=== PATIENT | male | born 1975 | race African-American/Black ===

== ENCOUNTER 2023-02-20 12:29 | Inpatient (IN) | payer OTHER ==
[2023-02-20] MEDS ORDERED: Ondansetron ODT 4 MG TAB PO PRN (14:24)
[2023-02-20] MEDS ORDERED: Acetaminophen 325 MG TAB PO PRN (14:24)
[2023-02-20] MEDS ORDERED: Senokot S 8.6-50 MG TAB PO PRN (14:24)
[2023-02-20] MEDS ORDERED: Sodium Chloride 0.9% 1,000 ML IV SCH (14:30)
[2023-02-20] MEDS ORDERED: Dextrose 50% Abboject 50 ML SYRINGE SLOW IVP PRN ×2 (15:04→15:06)
[2023-02-20] MEDS ORDERED: Dextrose 5% in Water 1,000 ML IV PRN ×2 (15:04→15:06)
[2023-02-20] MEDS ORDERED: HumaLOG 300 UNITS/3 ML VIAL SC PRN (15:06)
[2023-02-20] MEDS ORDERED: Aspirin 325 mg Enteric Coated Tablet PO SCH (15:10)
[2023-02-20 15:32] VITALS: BMI 36.1
[2023-02-20] MEDS: Heparin 5,000 UNITS/ML VIAL SC SCH ×2 (16:10→20:12)
[2023-02-20] MEDS: Nicotine 14 MG PATCH TD SCH (16:11)
[2023-02-20] MEDS: Sodium Chloride 0.9% 1,000 ML IV SCH (16:12)
[2023-02-20 16:36] LABS: CKMB 6.5 ng/mL (0-6.6)
[2023-02-20] MEDS: Famotidine 20 MG TAB PO SCH (20:11)
[2023-02-20] MEDS: Atorvastatin Calcium 40 MG TAB PO SCH (20:11)
[2023-02-20] MEDS: hydrALAZINE 25 MG TAB PO SCH (20:12)
[2023-02-20 22:14] LABS: CKMB 6.3 ng/mL (0-6.6)
[2023-02-21 05:05] LABS: #Eosinphils 0.1 thou/uL (0.0-0.7); #Monocytes 0.5 thou/uL (0.11-0.59); #Neutrophils 3.3 thou/uL (1.40-6.50); %Basophils 0.1 % (0.0-1.0); %Eosinophils 0.7 % (0.0-10.0); %Lymphocytes 44.9 % (21.0-51.0); %Monocytes 6.6 % (0.0-10.0); %Neutrophils 47.6 % (42.0-75.0); Hemoglobin 11.6 g/dL (14.0-18.0); Mean Corpuscular HGB CONC 32.3 g/dL (32.0-36.0); Mean Corpuscular Hemoglobin 30.5 pg (27.0-31.0); Mean Corpuscular Volume 94.5 fl (78.0-98.0); Mean Platelet Volume 10.5 fL (7.4-10.4); Platelet Count 135 10x3/uL (130-400); RBC Distribution Width 14.1 % (11.5-14.5)
[2023-02-21 05:30] LABS: ALT (SGPT) 85 U/L (8-55); AST (SGOT) 37 U/L (5-34); Albumin 3.5 g/dL (3.5-5.0); Alkaline Phosphatase 56 U/L (40-110); Anion Gap 8 mmol/L (10-20); BUN (Urea Nitrogen) 19 mg/dL (8.9-20.6); Bilirubin, Total 0.2 mg/dL (0.2-1.2); Calc. Creatinine Clearance 105 mL/min (70-130); Calcium 8.5 mg/dL (7.8-10.44); Carbon Dioxide 23 mmol/L (22-29); Cardiac Risk 4.4 (Less than 4.5); Chloride 110 mmol/L (98-107); Cholesterol 131 mg/dl (< 200 Desired); Estimated GFR 58; Globulin 2.9 g/dL (2.4-3.5); Glucose 94 mg/dL (70-105); HDL Cholesterol 30 mg/dL (>60 Neg Risk); LDL Cholesterol, Calculated 86 mg/dL; Potassium 4.4 mmol/L (3.5-5.1); Protein, Total 6.4 g/dL (6.0-8.3); Sodium 137 mmol/L (136-145); Triglycerides 77 mg/dL (Less than 150)
[2023-02-21] MEDS: Sodium Chloride 0.9% 1,000 ML IV SCH ×2 (06:20→14:00)
[2023-02-21] MEDS: Heparin 5,000 UNITS/ML VIAL SC SCH ×3 (08:54→21:13)
[2023-02-21] MEDS: Aspirin 325 mg Enteric Coated Tablet PO SCH (08:55)
[2023-02-21] MEDS: hydrALAZINE 25 MG TAB PO SCH ×3 (08:55→21:15)
[2023-02-21] MEDS: RisperDAL M 1 MG TAB SL SCH (08:57)
[2023-02-21] MEDS: Famotidine 20 MG TAB PO SCH ×2 (08:57→21:12)
[2023-02-21] MEDS ORDERED: Iopamidol 370 76% 100 ML VIAL ONE (10:02)
[2023-02-21] MEDS ORDERED: Communication Order-Pharmacy FS SCH (12:00)
[2023-02-21] MEDS ORDERED: Lidocaine 1% (PF) 30 ML VIAL ONE (12:05)
[2023-02-21] MEDS ORDERED: fentaNYL 50 mcg/mL 1 mL Vial ONE (13:18)
[2023-02-21] MEDS ORDERED: Midazolam HCl 2 mg/2 ml Vial ONE (13:19)
[2023-02-21] MEDS ORDERED: Nitroglycerin 0.4 MG TAB (25 Tab Bottle) SL PRN (15:46)
[2023-02-21] MEDS ORDERED: Sodium Chloride 0.9% 200 ML IV PRN (15:46)
[2023-02-21] MEDS ORDERED: Acetaminophen/Codeine 30-300mg Tablet PO PRN ×2 (15:46)
[2023-02-21] MEDS: Nicotine 14 MG PATCH TD SCH (16:27)
[2023-02-21] MEDS: Atorvastatin Calcium 40 MG TAB PO SCH (21:12)
[2023-02-22 05:22] LABS: #Monocytes 0.4 thou/uL (0.11-0.59); #Neutrophils 3.5 thou/uL (1.40-6.50); %Basophils 0.3 % (0.0-1.0); %Eosinophils 0.7 % (0.0-10.0); %Lymphocytes 34.1 % (21.0-51.0); %Monocytes 6.2 % (0.0-10.0); %Neutrophils 58.5 % (42.0-75.0); Hemoglobin 11.9 g/dL (14.0-18.0); Mean Corpuscular HGB CONC 32.7 g/dL (32.0-36.0); Mean Corpuscular Hemoglobin 30.7 pg (27.0-31.0); Mean Corpuscular Volume 94.1 fl (78.0-98.0); Mean Platelet Volume 10.2 fL (7.4-10.4); Platelet Count 129 10x3/uL (130-400); Red Blood Cell (RBC) Count 3.87 mill/uL (4.70-6.10)
[2023-02-22 05:46] LABS: Anion Gap 12 mmol/L (10-20); BUN (Urea Nitrogen) 16 mg/dL (8.9-20.6); Calc. Creatinine Clearance 121 mL/min (70-130); Calcium 8.6 mg/dL (7.8-10.44); Carbon Dioxide 21 mmol/L (22-29); Chloride 109 mmol/L (98-107); Estimated GFR 69; Glucose 87 mg/dL (70-105); Potassium 4.6 mmol/L (3.5-5.1); Sodium 137 mmol/L (136-145)
[2023-02-22] MEDS: hydrALAZINE 25 MG TAB PO SCH ×2 (09:08→21:05)
[2023-02-22] MEDS: Famotidine 20 MG TAB PO SCH ×2 (09:09→21:06)
[2023-02-22] MEDS: Aspirin 325 mg Enteric Coated Tablet PO SCH (09:09)
[2023-02-22] MEDS: Heparin 5,000 UNITS/ML VIAL SC SCH (09:09)
[2023-02-22] MEDS: RisperDAL M 1 MG TAB SL SCH (09:09)
[2023-02-22] MEDS ORDERED: Iopamidol 370 76% 100 ML VIAL ONE (10:23)
[2023-02-22] MEDS ORDERED: Apixaban 5 MG TAB PO SCH (10:30)
[2023-02-22] MEDS: Sodium Chloride 0.9% 1,000 ML IV SCH (11:06)
[2023-02-22] MEDS: Nicotine 14 MG PATCH TD SCH (15:48)
[2023-02-22] MEDS: Apixaban 5 MG TAB PO SCH (21:07)
[2023-02-22] MEDS: Atorvastatin Calcium 10 MG TAB PO SCH (21:07)
[2023-02-23 04:54] LABS: #Eosinphils 0.1 thou/uL (0.0-0.7); #Monocytes 0.4 thou/uL (0.11-0.59); #Neutrophils 3.1 thou/uL (1.40-6.50); %Basophils 0.2 % (0.0-1.0); %Lymphocytes 40.4 % (21.0-51.0); %Monocytes 6.3 % (0.0-10.0); %Neutrophils 51.9 % (42.0-75.0); Hemoglobin 11.9 g/dL (14.0-18.0); Mean Corpuscular HGB CONC 33.3 g/dL (32.0-36.0); Mean Corpuscular Hemoglobin 30.7 pg (27.0-31.0); Mean Corpuscular Volume 92.2 fl (78.0-98.0); Mean Platelet Volume 10.6 fL (7.4-10.4); Platelet Count 138 10x3/uL (130-400); RBC Distribution Width 13.8 % (11.5-14.5); Red Blood Cell (RBC) Count 3.87 mill/uL (4.70-6.10); White Blood Cell (WBC) Count 5.9 10x3/uL (4.8-10.8)
[2023-02-23 05:19] LABS: Anion Gap 13 mmol/L (10-20); BUN (Urea Nitrogen) 14 mg/dL (8.9-20.6); Calc. Creatinine Clearance 122 mL/min (70-130); Calcium 8.8 mg/dL (7.8-10.44); Carbon Dioxide 22 mmol/L (22-29); Chloride 109 mmol/L (98-107); Estimated GFR 69; Glucose 84 mg/dL (70-105); Potassium 4.6 mmol/L (3.5-5.1); Sodium 139 mmol/L (136-145)
[2023-02-23] MEDS: Famotidine 20 MG TAB PO SCH ×2 (08:35→20:19)
[2023-02-23] MEDS: Apixaban 5 MG TAB PO SCH ×2 (08:35→20:18)
[2023-02-23] MEDS: hydrALAZINE 25 MG TAB PO SCH ×2 (08:36→20:19)
[2023-02-23] MEDS: RisperDAL M 1 MG TAB SL SCH (08:40)
[2023-02-23] MEDS: Nicotine 14 MG PATCH TD SCH (17:11)
[2023-02-23] MEDS: Atorvastatin Calcium 10 MG TAB PO SCH (20:18)
[2023-02-24 04:45] LABS: #Eosinphils 0.1 thou/uL (0.0-0.7); #Monocytes 0.4 thou/uL (0.11-0.59); #Neutrophils 2.8 thou/uL (1.40-6.50); %Basophils 0.4 % (0.0-1.0); %Eosinophils 1.1 % (0.0-10.0); %Lymphocytes 41.7 % (21.0-51.0); %Monocytes 7.2 % (0.0-10.0); %Neutrophils 49.4 % (42.0-75.0); Hemoglobin 12.2 g/dL (14.0-18.0); Mean Corpuscular HGB CONC 32.4 g/dL (32.0-36.0); Mean Corpuscular Hemoglobin 30.1 pg (27.0-31.0); Mean Corpuscular Volume 93.1 fl (78.0-98.0); Mean Platelet Volume 10.7 fL (7.4-10.4); Platelet Count 155 10x3/uL (130-400); RBC Distribution Width 13.7 % (11.5-14.5); Red Blood Cell (RBC) Count 4.05 mill/uL (4.70-6.10); White Blood Cell (WBC) Count 5.6 10x3/uL (4.8-10.8)
[2023-02-24 05:17] LABS: Anion Gap 13 mmol/L (10-20); BUN (Urea Nitrogen) 12 mg/dL (8.9-20.6); Calc. Creatinine Clearance 124 mL/min (70-130); Calcium 9.2 mg/dL (7.8-10.44); Carbon Dioxide 24 mmol/L (22-29); Chloride 106 mmol/L (98-107); Estimated GFR 71; Glucose 84 mg/dL (70-105); Potassium 4.5 mmol/L (3.5-5.1); Sodium 138 mmol/L (136-145)
[2023-02-24] MEDS: Apixaban 5 MG TAB PO SCH ×2 (08:41→20:26)
[2023-02-24] MEDS: hydrALAZINE 25 MG TAB PO SCH ×2 (08:42→20:26)
[2023-02-24] MEDS: Famotidine 20 MG TAB PO SCH ×2 (08:42→20:26)
[2023-02-24] MEDS: RisperDAL M 1 MG TAB SL SCH (08:43)
[2023-02-24] MEDS: Nicotine 14 MG PATCH TD SCH (14:45)
[2023-02-24] MEDS: Atorvastatin Calcium 10 MG TAB PO SCH (20:26)
[2023-02-25 04:53] LABS: #Eosinphils 0.1 thou/uL (0.0-0.7); #Monocytes 0.4 thou/uL (0.11-0.59); #Neutrophils 3.4 thou/uL (1.40-6.50); %Basophils 0.3 % (0.0-1.0); %Eosinophils 1.3 % (0.0-10.0); %Lymphocytes 36.2 % (21.0-51.0); %Monocytes 6.4 % (0.0-10.0); %Neutrophils 55.5 % (42.0-75.0); Hemoglobin 13.2 g/dL (14.0-18.0); Mean Corpuscular HGB CONC 33.6 g/dL (32.0-36.0); Mean Corpuscular Volume 92.3 fl (78.0-98.0); Platelet Count 148 10x3/uL (130-400); RBC Distribution Width 13.8 % (11.5-14.5); Red Blood Cell (RBC) Count 4.26 mill/uL (4.70-6.10); White Blood Cell (WBC) Count 6.1 10x3/uL (4.8-10.8)
[2023-02-25 05:14] LABS: Anion Gap 13 mmol/L (10-20); BUN (Urea Nitrogen) 14 mg/dL (8.9-20.6); Calc. Creatinine Clearance 125 mL/min (70-130); Calcium 9.3 mg/dL (7.8-10.44); Carbon Dioxide 26 mmol/L (22-29); Chloride 103 mmol/L (98-107); Estimated GFR 71; Glucose 98 mg/dL (70-105); Potassium 4.3 mmol/L (3.5-5.1); Sodium 138 mmol/L (136-145)
[2023-02-25] MEDS: hydrALAZINE 25 MG TAB PO SCH ×2 (09:09→20:45)
[2023-02-25] MEDS: Apixaban 5 MG TAB PO SCH ×2 (09:09→20:45)
[2023-02-25] MEDS: RisperDAL M 1 MG TAB SL SCH (09:09)
[2023-02-25] MEDS: Famotidine 20 MG TAB PO SCH ×2 (09:09→20:45)
[2023-02-25] MEDS: Nicotine 14 MG PATCH TD SCH (16:34)
[2023-02-25] MEDS: Atorvastatin Calcium 10 MG TAB PO SCH (20:45)
[2023-02-26 05:48] LABS: #Eosinphils 0.1 thou/uL (0.0-0.7); #Monocytes 0.4 thou/uL (0.11-0.59); #Neutrophils 2.2 thou/uL (1.40-6.50); %Basophils 0.2 % (0.0-1.0); %Eosinophils 1.9 % (0.0-10.0); %Lymphocytes 44.3 % (21.0-51.0); %Monocytes 7.7 % (0.0-10.0); %Neutrophils 45.7 % (42.0-75.0); Hemoglobin 13.3 g/dL (14.0-18.0); Mean Corpuscular HGB CONC 32.6 g/dL (32.0-36.0); Mean Corpuscular Volume 91.9 fl (78.0-98.0); Mean Platelet Volume 10.5 fL (7.4-10.4); Platelet Count 165 10x3/uL (130-400); RBC Distribution Width 13.6 % (11.5-14.5); Red Blood Cell (RBC) Count 4.44 mill/uL (4.70-6.10); White Blood Cell (WBC) Count 4.8 10x3/uL (4.8-10.8)
[2023-02-26 06:40] LABS: Anion Gap 13 mmol/L (10-20); BUN (Urea Nitrogen) 14 mg/dL (8.9-20.6); Calc. Creatinine Clearance 137 mL/min (70-130); Calcium 9.3 mg/dL (7.8-10.44); Carbon Dioxide 27 mmol/L (22-29); Chloride 101 mmol/L (98-107); Estimated GFR 79; Glucose 88 mg/dL (70-105); Magnesium 2.3 mg/dL (1.6-2.6); Potassium 4.4 mmol/L (3.5-5.1); Sodium 137 mmol/L (136-145)
[2023-02-26 07:30] VITALS: BP 111/74; TEMP 97.6
[2023-02-26] MEDS: hydrALAZINE 25 MG TAB PO SCH (08:41)
[2023-02-26] MEDS: Apixaban 5 MG TAB PO SCH (08:41)
[2023-02-26] MEDS: RisperDAL M 1 MG TAB SL SCH (08:41)
[2023-02-26] MEDS: Famotidine 20 MG TAB PO SCH (08:41)
== END 2023-02-26 10:40 | disposition home or self-care (01) | DRG 100 ==
LOC: OBSVTOIN 14:28 → NEURO 14:28
PROVIDERS: ADMIT Internal Medicine; ATTEND Internal Medicine
PROC: 4A023N7 Measurement of Cardiac Sampling and Pressure, Left Heart, Percutaneous Approach (ICD-10-PCS; principal; 2023-02-21)
PROC: B2111ZZ Fluoroscopy of Multiple Coronary Arteries using Low Osmolar Contrast (ICD-10-PCS; 2023-02-21)
PROC: B2151ZZ Fluoroscopy of Left Heart using Low Osmolar Contrast (ICD-10-PCS; 2023-02-21)
DX: G40.209 Localization-related (focal) (partial) symptomatic epilepsy and epileptic syndromes with complex partial seizures, not intractable, without status epilepticus (principal); I21.4 Non-ST elevation (NSTEMI) myocardial infarction; I26.99 Other pulmonary embolism without acute cor pulmonale; N17.9 Acute kidney failure, unspecified; I50.42 Chronic combined systolic (congestive) and diastolic (congestive) heart failure; E11.9 Type 2 diabetes mellitus without complications; F17.210 Nicotine dependence, cigarettes, uncomplicated; F14.10 Cocaine abuse, uncomplicated; F41.9 Anxiety disorder, unspecified; J44.9 Chronic obstructive pulmonary disease, unspecified; G89.29 Other chronic pain; F20.9 Schizophrenia, unspecified; E78.2 Mixed hyperlipidemia; I11.0 Hypertensive heart disease with heart failure; I27.20 Pulmonary hypertension, unspecified; T42.6X6A Underdosing of other antiepileptic and sedative-hypnotic drugs, initial encounter; Z88.0 Allergy status to penicillin; Z71.6 Tobacco abuse counseling
CPT/HCPCS: 36415; 36416; 70551; 71275; 80048; 80053; 80061; 80164; 82553; 83036; 83735; 85025; 93005; 93010; 93306; 93458; 93798; 94760; 95816; 95819; 95957; 99152; C1769; J1644; J2001; J2250; J3010; J7050; Q9967